=== PATIENT | male | born 1935 | race Two or more races ===

== ENCOUNTER 2017-10-12 07:21 | Outpatient (CLI) | payer OTHER ==
[~2017-10-12 07:21] MED LIST: AMARYL 4MG; ASA81 MG; COZAAR25 MG; FOLIC ACID1 MG; FORTAMET1000 MG; GLUCOPHAGE XR500 MG PO; HYZAAR 100-121 UDTAB PO; KOMBIGLYZE XR1 EAC2; LIPITOR20 MG PO; PLAVIX75 MG PO; ZOCOR20 MG
== END 2017-10-12 07:31 | disposition home or self-care (01) ==
LOC: LAB 07:21
DX: Z12.11 Encounter for screening for malignant neoplasm of colon (principal); D68.8 Other specified coagulation defects; D64.89 Other specified anemias

== ENCOUNTER 2017-10-14 07:50 | Outpatient (CLI) | payer OTHER | END 2017-10-14 07:57 | disposition home or self-care (01) | LOC: LAB 07:50 | DX: Z12.11 Encounter for screening for malignant neoplasm of colon (principal); D68.8 Other specified coagulation defects; D64.89 Other specified anemias ==

== ENCOUNTER 2017-10-19 18:53 | Emergency (ER) | payer OTHER ==
[~2017-10-19] VITALS: Ht 170.2 cm; Wt 61.2 kg
== END 2017-10-20 03:17 | disposition home or self-care (01) ==
LOC: ER 18:53
DX: R55 Syncope and collapse (principal)

== ENCOUNTER → 2017-10-22 | Outpatient (CLI) | payer OTHER | END | disposition home or self-care (01) | LOC: LAB 11:43 | DX: D64.89 Other specified anemias (principal); D68.8 Other specified coagulation defects; E11.65 Type 2 diabetes mellitus with hyperglycemia; N39.0 Urinary tract infection, site not specified; B15.9 Hepatitis A without hepatic coma ==

== ENCOUNTER 2017-10-30 17:24 | Inpatient (IN) | payer OTHER ==
[~2017-10-30] VITALS: Ht 170.2 cm; Wt 63.0 kg
[2017-11-14] MEDS ORDERED: TAMSULOSIN HCL0.4 MG PO (15:34)
[2017-11-14] MEDS ORDERED: FLUCONAZOLE100 MG PO (15:34)
[2017-11-14] MEDS ORDERED: FOLIC ACID1 MG PO (15:34)
[2017-11-14] MEDS ORDERED: TRAM1TAB98 PO (15:34)
== END 2017-11-14 16:56 | disposition home or self-care (01) | DRG 445 ==
LOC: MEDJ 17:24 → SEC-K 17:24 → MEDJ 19:37
PROC: BF37ZZZ Magnetic Resonance Imaging (MRI) of Pancreas (ICD-10-PCS; 2017-10-30)
PROC: 0FBD8ZX Excision of Pancreatic Duct, Via Natural or Artificial Opening Endoscopic, Diagnostic (ICD-10-PCS; principal; 2017-11-07)
PROC: 05H533Z Insertion of Infusion Device into Right Subclavian Vein, Percutaneous Approach (ICD-10-PCS; 2017-11-08)
PROC: 3E0336Z Introduction of Nutritional Substance into Peripheral Vein, Percutaneous Approach (ICD-10-PCS; 2017-11-08)
PROC: 0F9930Z Drainage of Common Bile Duct with Drainage Device, Percutaneous Approach (ICD-10-PCS; 2017-11-11)
DX: K83.1 Obstruction of bile duct (principal); B37.49 Other urogenital candidiasis; E11.9 Type 2 diabetes mellitus without complications; I25.10 Atherosclerotic heart disease of native coronary artery without angina pectoris; Z86.73 Personal history of transient ischemic attack (TIA), and cerebral infarction without residual deficits; R63.4 Abnormal weight loss; I10 Essential (primary) hypertension; J44.9 Chronic obstructive pulmonary disease, unspecified; R42 Dizziness and giddiness; R55 Syncope and collapse; K59.09 Other constipation